=== PATIENT | male | born 1975 | race Caucasian/White ===

== ENCOUNTER → 2022-04-16 14:37 | Outpatient (CLI) | payer BC, SELFPAY ==
[2022-04-16 12:34] LABS: Basophils # 0.1 K/mm3 (0-0.2); Basophils % 1.5 % (0.1-2.0); Eosinophils # 0.1 K/mm3 (0.0-0.4); Hematocrit 45.6 % (42.0-52.0); Hemoglobin 15.7 g/dL (14.1-18.0); Lymphocytes # 1.3 K/mm3 (0.7-4.5); Lymphocytes % 19.9 % (10-50); Mean Corpuscular HGB Conc 34.4 g/dL (31.8-35.4); Mean Corpuscular Hemoglobin 33.8 pg (27.0-31.2); Mean Corpuscular Volume 98.3 fl (80-94); Mean Platelet Volume 8.8 fl (7.4-10.4); Monocytes # 0.5 K/mm3 (0.1-1.0); Monocytes % 8.2 % (1.7-9.3); Neutrophils # 4.6 K/mm3 (1.8-7.8); Neutrophils % 69.5 % (37.0-80.0); Platelet Count 156 K/mm3 (142-424); Red Blood Count 4.63 M/mm3 (4.60-6.20); Red Cell Distribution Width 13.5 % (11.5-17.5); White Blood Count 6.7 K/mm3 (4.8-10.8)
[2022-04-16 12:35] LABS: Alanine Aminotransferase 44 U/L (12-78); Albumin Level 4.7 g/dl (3.5-5.0); Albumin/Globulin Ratio 1.4 (1.1-1.8); Alkaline Phosphatase 136 U/L (38-126); Anion Gap 16.3 mEq/L (5-15); Aspartate Amino Transferase 48 U/L (17-59); Blood Urea Nitrogen 22 mg/dl (9-20); Calcium 10.8 mg/dl (8.4-10.2); Carbon Dioxide 31 mmol/L (22.0-30.0); Chloride 99 mmol/L (98-107); Chol/HDL Ratio 3.6 (1-3.5); Cholesterol 241 mg/dl (140-200); Estimated Glomerular Filt Rate 81 ml/min (>60); GFR (African American) 98 ML/MIN (>60); Globulin 3.4 g/dL (1.3-3.2); Glucose 104 mg/dl (74-100); HDL Cholesterol 67 mg/dl (40-60); Potassium 4.3 mmoL/L (3.5-5.1); Sodium 142 mmol/L (136-145); Total Protein,Serum 8.1 g/dl (6.3-8.2); Triglycerides 200 mg/dl (30-150); VLDL Cholesterol 40 mg/dL (0-40)
[2022-04-16 12:46] LABS: Direct LDL Cholesterol 116.69 mg/dL (100-129)
[2022-04-16 12:52] LABS: 25-OH Vitamin D, Total 39.8 ng/mL (30-100)
[2022-04-16 13:25] LABS: Vitamin B12 370 pg/mL (239-931)
[2022-04-17 08:22] LABS: Testosterone,Total 352 ng/dL (264-916)
== END ==
PROVIDERS: PCP Physician Assistant; Visit Provider Physician Assistant
DX: I10 Essential (primary) hypertension (principal); E83.52 Hypercalcemia; Z12.5 Encounter for screening for malignant neoplasm of prostate
CPT/HCPCS: 80053; 80061; 82306; 82607; 83970; 84403; 84443; 85025; G0103

== ENCOUNTER 2022-07-03 19:08 | Emergency (ER) | payer BC, SELFPAY ==
[2022-07-03 19:20] VITALS: BP 137/91; PULSE 101; RESP 19; TEMP 36.8; O2SAT 98; BMI 33.6
--- NOTE | 2022-07-03 19:41 | HMH.EDUTC ---
[facility] [place] Impression: Encounter for laboratory testing for COVID-19 virus Disposition: Home, Self-Care Condition on Discharge: Good Instructions: DI for COVID-19 (Suspected or Confirmed ), Preventing the Spread of Coronavirus Discharge Instructions Additional Instructions: *Monitor Temp, Over the counter Motrin or Tylenol as directed/as needed Tylenol every 4 hours and Motrin every 6 hours (as long as your family doctor has told you that you can take it) for fever or pain. and straight to ER if unable to lower temp less than 101.0 after medication given *Warm salt water gargles may help to soothe the throat *Throat Lozenges *Warm fluids like tea with honey may help to soothe the throat *Sleep elevated *Humidifier/Vaporizer Follow up IMMEDIATELY for new or worsening symptoms or no Noticeable improvement over the next 48-72 hours. 911 for difficulty breathing or swallowing You were tested for today for COVID19 your test result should be back in the next 24-48 hours, you may check your results on the [facility] My Health Portal Make sure to take your Vitamins Vit. C Vit D and Zinc if you can take them Referrals: Elena Vanegas PA [Primary Care Provider] - As needed Forms: Work/School Release Time of Disposition: 19:43 Medical Decision Making - Jeb Inquiry Pt receiving controlled substance: No Jeb was queried for this patient: No Vital Signs: 07/03/22 19:20 Temperature 98.3 F Temperature Source Oral Pulse Rate [Left Brachial] 101 H Respiratory Rate 19 Blood Pressure [Left Arm] 137/91 H Blood Pressure Mean [Left Arm] 106 Blood Pressure Source [Left Arm] Automatic Cuff Blood Pressure Position [Left Arm] Sitting 02 Sat by Pulse Oximetry 98 Oxygen Delivery Method Room Air Orders (Tests/Meds): ORDERS Category Date Time Status Covid-19 Nasal PCR ([facility]) Routine Lab 07/03/22 19:22 [place] [facility] [place] - General Stated complaint: Covid test Time Seen by Provider: 07/03/22 19:41 Mode of Arrival: Ambulatory Source of Information: Patient Limitations: No Limitations Description of Symptoms (Recalled from Triage Doc. by RN): PATIENT C/O COUGH AND CONGESTION. RECENTLY EXPOSED TO COVID. REPORTS A POSITIVE AT HOME COVID TEST HEENT Symptoms (Recalled from RN notes): No Resp Symptoms (Recalled from RN notes): Yes Skin Symptoms (Recalled from RN notes): No MS Symptoms (Recalled from RN notes): No Functional Status (Recalled from RN notes): WNL - History of Present Illness Provider Complaint: Patient states that he has been around several people over the last few days that has been positive for COVID States that he started having cough and nasal congestion and took a home COVID test and it was positive States that he came in to get tested to see if he has it - Related Data Previous Rx's Medication Instructions Recorded irbesartan 150 1 tab PO DAILY #90 tab 04/16/22 mg-hydrochlorothiazide 12.5 mg tablet lorazepam 0.5 mg tablet 0.5 mg PO DAILY PRN #14 tab 04/16/22 atorvastatin 10 mg tablet 10 mg PO HS #90 tab 04/17/22 levothyroxine 100 mcg tablet 100 mcg PO DAILY #90 tab 04/17/22 levothyroxine 25 mcg tablet 25 mcg PO DAILY #14 tab 04/17/22 levothyroxine 50 mcg tablet 50 mcg PO DAILY #14 tab 04/17/22 Allergies Allergy/AdvReac Type Severity Reaction Status Date / Time No Known Allergies Allergy Verified 04/16/22 09:37 - Worker's Comp Is this a Worker's Comp case?: No [facility] History - Hepatitis A Screen Attestation statement:: This patient has been screened for Hepatitis A risk factors. I have reviewed the patient's past medical history: Yes Medical History: Reports:: Hypertension - Social History Smoking Status: Never smoker Alcohol Intake: never Occupational Status: other ROS Obtained: Yes All systems reviewed & no additional complaints, Yes Systems reviewed as appropriate & no additional complaints - Constitutional Constitutional: Reports system reviewed and
[2022-07-03 19:44] VITALS: BP 137/91; PULSE 101; RESP 19; TEMP 36.8; O2SAT 98
== END 2022-07-03 19:47 | disposition home or self-care (01) ==
PROVIDERS: Emergency Provider Nurse Practitioner; PCP Physician Assistant
DX: U07.1 COVID-19 (principal)
CPT/HCPCS: 99212; C9803; G0463; U0003; U0005

== ENCOUNTER 2023-04-13 13:46 | Emergency (ER) | payer BC, SELFPAY ==
--- NOTE | 2023-04-13 13:48 | XR_ITS ---
FINAL REPORT CLINICAL HISTORY: fall, RT RIB PAIN FINDINGS: 3 views of the right ribs were obtained. There are mildly displaced fractures of the posterior and lateral right 8th rib. There is a probable nondisplaced fracture of the right anterolateral 7th rib. There is no pleural fluid collection or pneumothorax. A single view of the chest demonstrates mild right basilar atelectasis. IMPRESSION: Right 8th and probable 7th rib fractures. No pneumothorax. Reviewed, Interpreted and Dictated by Nader Morrison III, MD Transcribed by Oj Redman Authenticated and [facility]
[2023-04-13 13:50] VITALS: BP 176/101; PULSE 91; RESP 18; TEMP 36.8; O2SAT 98; BMI 30.2
[2023-04-13 14:04] VITALS: BP 176/101; PULSE 91; RESP 18; TEMP 36.8; O2SAT 98
--- NOTE | 2023-04-13 14:09 | EXP.UTC ---
Discharge Plan Disposition Patient Disposition: Home, Self-Care Condition: Good Prescriptions Prescriptions: New etodolac 200 mg capsule 200 mg PO Q8H PRN (Reason: pain) Qty: 20 0RF No Action irbesartan-hydrochlorothiazide 150-12.5 mg tablet See Rx Instructions .ROUTE .COMPLEX Rx Instructions: TAKE 1 TABLET BY MOUTH DAILY atorvastatin [Lipitor] 10 mg tablet 10 mg PO HS Referrals Follow up/Referrals: Elena Vanegas PA [Primary Care Provider] - See instructions Activity Restrictions/Add. Instructions Additional Instructions/Restrictions: *Etodolac aide 8 hours with meal as needed for pain/inflammation *Not additional anti-inflammatory like Ibuprofen motrin, aleve, advil with the above amount of Etodolac. You can still take Tylenol every 4 hours as needed if you need something else for pain *Ice 20 minutes every 2 hours for the first 48 hours after the initial injury followed by moist heat every 20 minutes 3-4 times a day to affected area Make sure to cough and deep breath *Keep this area active, no movement leads to more stiffness, However take it easy and avoid heavy lifting pushing or pulling *Follow up with you family doctor if no improvement for further treatment Clinical Impressions Clinical Impression: Fracture, ribs Stand Alone Forms Stand Alone Forms: Work/School Release Instructions Patient Instructions: DI for Rib Fracture, Rib Fracture Discharge ED Provider: Victorina Aguilar [facility] General Stated complaint: Fall@home 04/12 RT rib pain Mode of Arrival: Ambulatory Source of Information: Patient Limitations: No Limitations Time Seen by Provider: 04/13/23 14:09 Description of Symptoms (Recalled from Triage Doc. by RN): PATIENT C/O RIGHT RIB PAIN AFTER FALLING LAST NIGHT HEENT Symptoms (Recalled from RN notes): No Resp Symptoms (Recalled from RN notes): No Skin Symptoms (Recalled from RN notes): No MS Symptoms (Recalled from RN notes): Yes Functional Status (Recalled from RN notes): WNL History of Present Illness Provider Complaint: Patient states that he was at home last night when he tripped and fell and hit his right side of ribs against table States that he has been having bruising and pain in his right ribs ever since and hurts when he moves or takes a deep breath States that he used a salonpa patch on it last night and it helped some but come in today to get it checked Related Data Home Medications Medication Instructions Recorded Confirmed atorvastatin 10 mg tablet (Lipitor) 10 mg PO HS Cholesterol 04/13/23 04/13/23 irbesartan 150 See Rx Instructions .Route 04/13/23 04/13/23 mg-hydrochlorothiazide 12.5 mg .COMPLEX Hypertension tablet Previous Rx's Medication Instructions Recorded etodolac 200 mg capsule 200 mg PO Q8H PRN pain #20 caps 04/13/23 Allergies Allergy/AdvReac Type Severity Reaction Status Date / Time No Known Allergies Allergy Verified 04/16/22 09:37 Worker's Comp Is this a Worker's Comp case?: No [facility] Disclaimer: The information contained in this section may have been updated after the patient was seen, as this information can be updated by other users. Medical History (Updated 04/13/23 @ 15:37 by Victorina Aguilar APRN) Gout Hypertension Social History Smoking Status: Never smoker alcohol intake: never current occupational status: other Travel in the last 8 weeks: None ROS Obtained: Yes All systems reviewed & no additional complaints except as documented and Yes Systems reviewed as appropriate & no additional complaints except as documented Constitutional Constitutional: Reports system reviewed and no additional complaints, except as documented and Reports as per HPI ENT Ears, Nose, Mouth, and Throat: Reports system reviewed and no additional complaints, except as documented and Reports as per HPI Cardiovascular Cardiovascular: Reports system reviewed and no additional complaints, except as documented
== END 2023-04-13 15:50 | disposition home or self-care (01) ==
PROVIDERS: Emergency Provider Nurse Practitioner; PCP Physician Assistant
DX: S22.41XA Multiple fractures of ribs, right side, initial encounter for closed fracture (principal); W01.190A Fall on same level from slipping, tripping and stumbling with subsequent striking against furniture, initial encounter; I10 Essential (primary) hypertension
CPT/HCPCS: 71101; 99212; 99214; G0463

== ENCOUNTER → 2023-05-07 13:15 | Outpatient (CLI) | payer BC, SELFPAY ==
[2023-05-08 09:55] LABS: Hemoglobin A1C 4.8 % (4.0-6.0)
== END ==
PROVIDERS: PCP Physician Assistant; Visit Provider Physician Assistant
DX: R73.09 Other abnormal glucose (principal)
CPT/HCPCS: 83036

== ENCOUNTER → 2023-05-07 13:42 | Outpatient (CLI) | payer BC, SELFPAY ==
--- NOTE | 2023-05-07 13:45 | XR_ITS ---
FINAL REPORT CLINICAL HISTORY: right rib fracture COMPARISON: 04/13/2023 FINDINGS: A single view of the chest with 3 views of the ribs were obtained. There is no acute cardiopulmonary process. No pneumothorax is identified. There are multiple right rib fractures including 7th, 8th, 9th, and 10th, some better identified than previously. IMPRESSION: Right rib fractures as above. Reviewed, Interpreted and Dictated by Nader Morrison III, MD Transcribed by Poppy Maddox Authenticated and . [facility]
[2023-05-07 18:26] LABS: Basophils % 0.5 % (0.1-2.0); Eosinophils # 0.1 K/mm3 (0.0-0.4); Eosinophils % 0.9 % (0.1-12.0); Hematocrit 48.2 % (42.0-52.0); Lymphocytes # 1.2 K/mm3 (0.7-4.5); Lymphocytes % 19.5 % (10-50); Mean Corpuscular HGB Conc 33.3 g/dL (31.8-35.4); Mean Corpuscular Hemoglobin 31.7 pg (27.0-31.2); Mean Corpuscular Volume 95.3 fl (80-94); Mean Platelet Volume 7.9 fl (7.4-10.4); Monocytes # 0.5 K/mm3 (0.1-1.0); Monocytes % 8.1 % (1.7-9.3); Neutrophils # 4.4 K/mm3 (1.8-7.8); Platelet Count 137 K/mm3 (142-424); Red Blood Count 5.06 M/mm3 (4.60-6.20); White Blood Count 6.2 K/mm3 (4.8-10.8)
[2023-05-07 18:35] LABS: Alanine Aminotransferase 57 U/L (12-78); Albumin Level 4.9 g/dl (3.5-5.0); Albumin/Globulin Ratio 1.3 (1.1-1.8); Alkaline Phosphatase 162 U/L (38-126); Anion Gap 18.1 mEq/L (5-15); Aspartate Amino Transferase 55 U/L (17-59); Blood Urea Nitrogen 15 mg/dl (9-20); Calcium 9.9 mg/dl (8.4-10.2); Carbon Dioxide 28 mmol/L (22.0-30.0); Chloride 99 mmol/L (98-107); Cholesterol 186 mg/dl (140-200); Estimated Glomerular Filt Rate 91 ml/min (>60); GFR (African American) 110 ML/MIN (>60); Globulin 3.8 g/dL (1.3-3.2); Glucose 125 mg/dl (74-100); HDL Cholesterol 92 mg/dl (40-60); Potassium 4.1 mmoL/L (3.5-5.1); Sodium 141 mmol/L (136-145); Total Protein,Serum 8.7 g/dl (6.3-8.2); Triglycerides 225 mg/dl (30-150); VLDL Cholesterol 45 mg/dL (0-40)
[2023-05-07 18:47] LABS: Direct LDL Cholesterol 67.39 mg/dL (100-129); Intact Parathyroid Hormone 20.7 pg/mL (7.5-53.5)
[2023-05-07 18:53] LABS: 25-OH Vitamin D, Total 44.6 ng/mL (30-100)
[2023-05-07 19:06] LABS: Thyroid Stimulating Hormone 4.65 uIU/mL (0.465-4.68)
[2023-05-11 11:02] LABS: Calcium, Ionized 5.1 mg/dL (4.5-5.6)
== END ==
PROVIDERS: PCP Physician Assistant; Visit Provider Physician Assistant
DX: S22.41XA Multiple fractures of ribs, right side, initial encounter for closed fracture (principal); E03.9 Hypothyroidism, unspecified; E66.9 Obesity, unspecified; Z68.30 Body mass index [BMI] 30.0-30.9, adult
CPT/HCPCS: 71101; 80053; 80061; 82306; 82330; 83970; 84443; 85025

== ENCOUNTER → 2023-06-11 13:28 | Outpatient (CLI) | payer BC, SELFPAY ==
--- NOTE | 2023-06-11 13:33 | XR_ITS ---
FINAL REPORT CLINICAL HISTORY: f/u rt rib fx COMPARISON: 05/07/2023 FINDINGS: The heart and mediastinum are normal. The lungs are clear. There is no pneumothorax. There is interval healing of the posterior right ninth rib, lateral right eighth rib, and lateral right seventh rib. IMPRESSION: Interval healing of the rib fractures as stated above. No pneumothorax, Reviewed, Interpreted and Dictated by Manuela Arredondo MD Transcribed by Alec Werner Authenticated and [facility]
--- NOTE | 2023-06-11 13:33 | XR_ITS ---
FINAL REPORT CLINICAL HISTORY: rt rib/ mid back pain FINDINGS: AP, lateral, and swimmer''s views of the thoracic spine were obtained. There is no prior exam for comparison. There is no acute fracture or malalignment. Vertebral body height is preserved. Paraspinal soft tissues are within normal limits. IMPRESSION: No acute osseous abnormality of the thoracic spine. Reviewed, Interpreted and Dictated by Manuela Arredondo MD Transcribed by Alec Werner Authenticated and [facility]
== END ==
LOC: RAD 13:30
PROVIDERS: PCP Physician Assistant; Visit Provider Physician Assistant
DX: M54.6 Pain in thoracic spine (principal); S22.41XA Multiple fractures of ribs, right side, initial encounter for closed fracture
CPT/HCPCS: 71101; 72072

== ENCOUNTER → 2023-07-23 11:46 | Outpatient (CLI) | payer BC, SELFPAY ==
--- NOTE | 2023-07-23 11:51 | XR_ITS ---
FINAL REPORT CLINICAL HISTORY: right rib fractures f/u COMPARISON: 06/11/2023 FINDINGS: A single view of the chest with 3 views of the ribs were obtained. There is no acute cardiopulmonary process. No pneumothorax is identified. There are fractures of the 8th, 9th, and 10th ribs posteriorly. There is a fracture of both the posterior and lateral aspect of the 9th rib. Callus formation is identified consistent with healing fractures. IMPRESSION: Healing fractures as above. Reviewed, Interpreted and Dictated by Brijesh Mckenzie MD Transcribed by Cate Rodríguez Authenticated and [facility]
== END ==
LOC: RAD 11:47
PROVIDERS: PCP Physician Assistant; Visit Provider Physician Assistant
DX: S22.41XA Multiple fractures of ribs, right side, initial encounter for closed fracture (principal)
CPT/HCPCS: 71101

== ENCOUNTER → 2023-09-10 12:04 | Outpatient (CLI) | payer BC, SELFPAY ==
--- NOTE | 2023-09-10 12:07 | XR_ITS ---
FINAL REPORT TECHNIQUE: Right ribs 6 views CLINICAL HISTORY: right rib fractures COMPARISON: 07/23/2023 FINDINGS: RIGHT RIBS: There are subacute right posterior rib fractures involving the seventh through the 10th ribs with evidence of healing. No new abnormalities of the right ribs are noted and no evidence of pneumothorax is seen. IMPRESSION: Subacute right posterior seventh through 10th rib fractures with evidence of healing. Reviewed, Interpreted and Dictated by Nader Morrison III, MD Transcribed by Joie Alonzo Authenticated and [facility]
== END ==
PROVIDERS: PCP Physician Assistant; Visit Provider Physician Assistant
DX: S22.31XA Fracture of one rib, right side, initial encounter for closed fracture (principal)
CPT/HCPCS: 71100